=== PATIENT | female | born 1990 | race African-American/Black ===

== ENCOUNTER → 2018-07-12 | Outpatient (REF) | payer OTHER | LOC: M SFHCLERA 19:59 | DX: R30.0 Dysuria (principal) | CPT/HCPCS: 87086 ==

== ENCOUNTER 2018-11-25 14:04 | Emergency (ER) | payer OTHER ==
[~2018-11-25] VITALS: Ht 165.1 cm; Wt 71.8 kg
[2018-11-25 16:20] LABS: BASO % 0.4 % (0.0-1.0); EOS # 0.2 10^3/uL (0.0-0.50); HEMOGLOBIN 12.2 g/dl (12.0-15.5); LYMPH # 3.2 10^3/uL (1.5-6.5); LYMPH % 34.5 % (24.0-44.0); MEAN CORPUSCULAR HEMOGLOBIN 24.6 pg (27.0-33.0); MEAN CORPUSCULAR HGB CONC 31.3 g/dl (32.0-36.5); MEAN CORPUSCULAR VOLUME 78.6 fl (80.0-96.0); MONO # 0.6 10^3/uL (0.0-0.8); MONO % 6.4 % (0.0-5.0); NEUTROPHILS # 5.2 10^3/uL (1.8-7.7); NEUTROPHILS % 56.5 % (36.0-66.0); PLATELET COUNT, AUTOMATED 369 10^3/uL (150-450); RED BLOOD COUNT 4.96 10^6/uL (4.00-5.40); WHITE BLOOD COUNT 9.2 10^3/uL (4.0-10.0)
[2018-11-25 16:44] LABS: ALT/SGPT 42 U/L (12-78); AMYLASE 115 U/L (25-115); BILIRUBIN,DIRECT < 0.1 MG/DL (0.0-0.2); BILIRUBIN,TOTAL 0.1 MG/DL (0.2-1.0); BLOOD UREA NITROGEN 16 MG/DL (7-18); CALCIUM LEVEL 8.9 MG/DL (8.5-10.1); CARBON DIOXIDE LEVEL 26 MEQ/L (21-32); CHLORIDE LEVEL 103 MEQ/L (98-107); CREATININE FOR GFR 0.78 MG/DL (0.55-1.30); GLOMERULAR FILTRATION RATE > 60.0 (>60); GLUCOSE, FASTING 76 MG/DL (70-100); LIPASE 165 U/L (73-393); POTASSIUM SERUM 4.3 MEQ/L (3.5-5.1); SODIUM LEVEL 136 MEQ/L (136-145); TOTAL PROTEIN 8.5 GM/DL (6.4-8.2)
--- NOTE | 2018-11-25 16:44 | REP ---
Right upper quadrant sonography: History: Right upper quadrant pain. Comparison study: No comparison study. Findings: Scanning through the right upper quadrant of the abdomen demonstrates a normal sized, thin-walled gallbladder without evidence of stone or polyp. Common bile duct is normal measuring 0.2 cm in greatest diameter. No focal liver lesion is seen. Liver size is normal. No pancreatic abnormality is observed. No right renal abnormality is seen. There is no evidence of ascites. The right kidney measures 12.2 x 4.4 x 4.0 cm. Impression: Negative right upper quadrant sonography. Electronically Signed by Nahid Brar MD 11/25/2018 04:35 P
[2018-11-25] MEDS ORDERED: ZOFR4TAB16 PO (17:00)
[2018-11-25] MEDS ORDERED: PEPC1TAB5 PO (17:00)
[2018-11-25 17:07] VITALS: BP 125/66
== END 2018-11-25 17:14 | disposition home or self-care (01) ==
LOC: M ED 14:04
DX: R10.11 Right upper quadrant pain (principal)

== ENCOUNTER → 2020-04-12 | Outpatient (CLI) | payer OTHER ==
[~2020-04-12] MED LIST: PEPC1TAB5 PO; ZOFR4TAB16 PO
--- NOTE | 2020-04-12 15:05 | REP ---
PELVIC SONOGRAPHY: HISTORY: Infertility. FINDINGS: Transabdominal and transvaginal scanning are performed. Uterine dimensions are 9.1 x 4.5 x 5.1 cm. Endometrial echo is 1.4 cm thick and centrally placed. Endometrial echo is somewhat heterogeneous. The left ovary is surgically absent. The right ovary is normal measuring 2.7 x 2.0 x 3.2 cm. It contains a 1.5 cm follicle cyst. IMPRESSION: Patient status post left oophorectomy. Otherwise negative pelvic sonography. Electronically Signed by Nahid Brar MD 04/12/2020 03:35 P
== END ==
LOC: M RAD 13:44
PROVIDERS: ATTEND Obstetrics & Gynecology
DX: N97.9 Female infertility, unspecified (principal)

== ENCOUNTER → 2020-07-04 | Outpatient (CLI) | payer OTHER ==
[~2020-07-04] MED LIST changes: +ISOVUE-370 76% 100ML VIAL As Ordered ONE
== END ==
LOC: M RADPRO 11:34
PROVIDERS: ATTEND Obstetrics & Gynecology
DX: N97.9 Female infertility, unspecified (principal); Z53.9 Procedure and treatment not carried out, unspecified reason

== ENCOUNTER → 2020-12-20 | Outpatient (CLI) | payer OTHER ==
--- NOTE | 2020-12-20 17:06 | REP ---
INDICATION: INFERTILITY. COMPARISON: None. TECHNIQUE: The endometrium was cannulated and contrast was injected by the attending rewriter Dr. Roy. Fluoroscopic spot films were acquired by Kayleigh Colon [facility], under the direct supervision of Dr. Gonzalez. Images reviewed prior with Dr. Gonzalez to dictation. FINDINGS: Fluoroscopy spot radiographs document filling of a normal endometrial cavity. There is normal isthmic and ampullary fallopian tube opacification, and right tubal patency was documented. The patient is status post left oophorectomy. IMPRESSION: Right sided tubal patency documented. The patient is status post left oophorectomy. 0.9 minutes of fluoroscopy time was utilized for this procedure. Some fluoroscopic images are performed with last image hold technology. These images require no additional radiation. <Electronically signed by Kayleigh Colon > 12/20/20 1648 <Electronically signed by Jeremy Gonzalez > 12/20/20 1700
== END ==
LOC: M RADPRO 13:39
PROVIDERS: ATTEND Obstetrics & Gynecology
DX: N97.9 Female infertility, unspecified (principal)
CPT/HCPCS: 58340; 74740; Q9967

== ENCOUNTER → 2022-08-07 | Outpatient (REF) | payer OTHER ==
[~2022-08-07] MED LIST changes: -ISOVUE-370 76% 100ML VIAL As Ordered ONE
[2022-08-07 14:05] LABS: BASO % 0.5 % (0.0-1.0); EOS # 0.2 10^3/uL (0.0-0.5); EOS % 2.2 % (0.0-3.0); HEMATOCRIT 37.7 % (36.0-47.0); HEMOGLOBIN 11.4 g/dl (12.0-15.5); LYMPH # 2.2 10^3/uL (1.5-5.0); MEAN CORPUSCULAR HEMOGLOBIN 23.8 pg (27.0-33.0); MEAN CORPUSCULAR HGB CONC 30.2 g/dl (32.0-36.5); MEAN CORPUSCULAR VOLUME 78.7 fl (80.0-96.0); MONO # 0.4 10^3/uL (0.0-0.8); MONO % 5.6 % (2.0-8.0); NEUTROPHILS # 4.8 10^3/uL (1.5-8.5); NEUTROPHILS % 62.4 % (36.0-66.0); PLATELET COUNT, AUTOMATED 202 10^3/uL (150-450); RED BLOOD COUNT 4.79 10^6/uL (4.00-5.40); WHITE BLOOD COUNT 7.7 10^3/uL (4.0-10.0)
[2022-08-07 15:05] LABS: ALBUMIN 3.8 GM/DL (3.2-5.2); ALT/SGPT 19 U/L (12-78); BILIRUBIN,TOTAL 0.2 MG/DL (0.2-1.0); BLOOD UREA NITROGEN 12 MG/DL (7-18); CALCIUM LEVEL 9.2 MG/DL (8.5-10.1); CARBON DIOXIDE LEVEL 24 MEQ/L (21-32); CHLORIDE LEVEL 106 MEQ/L (98-107); CHOLESTEROL LEVEL 172 MG/DL (<200); CHOLESTEROL RISK RATIO 3.372 (<5); CREATININE FOR GFR 0.56 MG/DL (0.55-1.30); GLOMERULAR FILTRATION RATE > 60.0 (>60); GLUCOSE, FASTING 80 MG/DL (70-100); HDL CHOLESTEROL 51 MG/DL (>40); LDL CHOLESTEROL 111 MG/DL (<100); NON-HDL-C 121 MG/DL; POTASSIUM SERUM 4.7 MEQ/L (3.5-5.1); SODIUM LEVEL 136 MEQ/L (136-145); TOTAL PROTEIN 7.9 GM/DL (6.4-8.2); TRIGLYCERIDES LEVEL 50 MG/DL (<150)
[2022-08-07 15:06] LABS: THYROID STIMULATING HORMONE 0.778 uIU/ML (0.358-3.740)
[2022-08-07 15:51] LABS: TOTAL 25(OH) VITAMIN D 14.5 NG/ML (30.0-100.0)
[2022-08-07 15:56] LABS: HEMOGLOBIN A1c 5.4 %
== END ==
LOC: M LAB REF 13:28
PROVIDERS: ATTEND Nurse Practitioner Family
DX: Z68.22 Body mass index [BMI] 22.0-22.9, adult (principal)

== ENCOUNTER 2022-10-03 14:34 | Emergency (ER) | payer OTHER ==
[~2022-10-03] VITALS: Ht 162.6 cm; Wt 62.0 kg
[2022-10-03] MEDS ORDERED: CYCL-707 PO (19:43)
[2022-10-03] MEDS ORDERED: IBUP-1022 PO (19:43)
[2022-10-03 19:57] VITALS: BP 121/72
== END 2022-10-03 19:58 | disposition home or self-care (01) ==
LOC: M ED 14:34
DX: S13.4XXA Sprain of ligaments of cervical spine, initial encounter (principal); V89.2XXA Person injured in unspecified motor-vehicle accident, traffic, initial encounter; M50.30 Other cervical disc degeneration, unspecified cervical region; Z79.899 Other long term (current) drug therapy

== ENCOUNTER → 2023-01-07 | Outpatient (REF) | payer OTHER ==
[~2023-01-07] MED LIST changes: +CYCL-707 PO; +IBUP-1022 PO
== END ==
LOC: M LAB REF 17:39
PROVIDERS: ATTEND Physician Assistant
DX: J02.9 Acute pharyngitis, unspecified (principal)

== ENCOUNTER → 2024-06-07 | Outpatient (REF) | payer OTHER ==
[2024-06-07 17:29] LABS: BASO % 0.5 % (0.0-1.0); EOS # 0.1 10^3/uL (0.0-0.5); EOS % 1.5 % (0.0-3.0); HEMATOCRIT 40.6 % (36.0-47.0); HEMOGLOBIN 12.6 g/dl (12.0-15.5); LYMPH # 3.1 10^3/uL (1.5-5.0); LYMPH % 38.4 % (24.0-44.0); MEAN CORPUSCULAR HEMOGLOBIN 24.3 pg (27.0-33.0); MEAN CORPUSCULAR VOLUME 78.4 fl (80.0-96.0); MONO # 0.8 10^3/uL (0.0-0.8); MONO % 9.3 % (2.0-8.0); NEUTROPHILS # 4.1 10^3/uL (1.5-8.5); NEUTROPHILS % 49.8 % (36.0-66.0); PLATELET COUNT, AUTOMATED 364 10^3/uL (150-450); RED BLOOD COUNT 5.18 10^6/uL (4.00-5.40); WHITE BLOOD COUNT 8.2 10^3/uL (4.0-10.0)
[2024-06-07 17:42] LABS: ALKALINE PHOSPHATASE 64 U/L (46-116); ALT/SGPT 30 U/L (7.0-40); AST/SGOT 16 U/L (<34); BILIRUBIN,TOTAL 0.3 MG/DL (0.3-1.2); BLOOD UREA NITROGEN 9 MG/DL (9-23); CALCIUM LEVEL 9.4 MG/DL (8.5-10.1); CARBON DIOXIDE LEVEL 26 MMOL/L (20-31); CHLORIDE LEVEL 104 MMOL/L (98-107); CHOLESTEROL LEVEL 189 MG/DL (<200); CHOLESTEROL RISK RATIO 3.75 (<5); CREATININE FOR GFR 0.57 MG/DL (0.55-1.30); GLOMERULAR FILTRATION RATE > 60.0 (>60); GLUCOSE, FASTING 67 MG/DL (60-100); HDL CHOLESTEROL 50.4 MG/DL (>40); IRON (FE) 43 UG/DL (50-170); LDL CHOLESTEROL 121.4 MG/DL (<100); MAGNESIUM LEVEL 2.2 MG/DL (1.8-2.4); NON-HDL-C 138.6 MG/DL; PERCENT SATURATION 10.8 % (13.2-45.0); POTASSIUM SERUM 4.5 MMOL/L (3.5-5.1); SODIUM LEVEL 136 MMOL/L (136-145); TOTAL IRON BINDING CAPACITY 399 UG/DL (250-425); TOTAL PROTEIN 7.9 G/DL (5.7-8.2); TRIGLYCERIDES LEVEL 86 MG/DL (<150)
[2024-06-07 17:45] LABS: HEMOGLOBIN A1c 5.5 % (4.0-6.0)
== END ==
LOC: M LAB REF 16:28
PROVIDERS: ATTEND Nurse Practitioner Family
DX: D64.9 Anemia, unspecified (principal); E66.3 Overweight

== ENCOUNTER → 2025-09-03 | Outpatient (REF) | payer OTHER ==
[~2025-09-03] MED LIST changes: -IBUP-1022 PO; +IBUP600T42 PO
== END ==
LOC: M LAB REF 09:37
PROVIDERS: ATTEND Physician Assistant
DX: B34.9 Viral infection, unspecified (principal)